=== PATIENT | female | born 1965 | race African-American/Black ===

== ENCOUNTER 2018-09-21 09:14 | Inpatient (IN) | payer OTHER ==
[2018-09-21 09:30] VITALS: BMI 21.3
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
[2018-09-21] MEDS ORDERED: IBUPROFEN 400 MG TABLET (FP) PO PRN (10:15)
[2018-09-21] MEDS ORDERED: diazePAM 5 MG TABLET PO PRN (10:15)
[2018-09-21] MEDS ORDERED: MAG HYDROX/AL HYDROX/SIMETH 30 ML UNIT-DOSE CUP PO PRN (10:15)
[2018-09-21] MEDS ORDERED: MAGNESIUM HYDROX 2400MG/30ML ORAL SUSPENSION 30 ML CUP PO PRN (10:15)
[2018-09-21] MEDS ORDERED: guaiFENesin/D-METHORPHAN HB 10 ML UNIT-DOSE CUPS PO PRN (10:15)
[2018-09-21] MEDS ORDERED: ACETAMINOPHEN 325 MG TABLET (FP) PO PRN (10:15)
[2018-09-21] MEDS ORDERED: METHADONE HCL 10 MG TABLET (FOR DETOX USE ONLY) PO ONE ×2 (10:15→23:00)
[2018-09-21] MEDS ORDERED: MENTHOL/PHENOL 1 EACH UD MM PRN (10:15)
[2018-09-21] MEDS ORDERED: P-EPHED 60MG/TRIPROLIDI 2.5MG TABLET PO PRN (10:15)
[2018-09-21] MEDS ORDERED: LOPERAMIDE HCL 2 MG CAPSULE PO PRN (10:15)
[2018-09-21] MEDS ORDERED: NICOTINE POLACRILEX 4 MG GUM BUC PRN (10:15)
[2018-09-21] MEDS ORDERED: MAGNESIUM CITRATE 300 ML BOTTLE PO PRN (10:15)
[2018-09-21] MEDS: TOLNAFTATE 1% CREAM 15 GM TUBE TP SCH ×2 (11:07→22:28)
[2018-09-21] MEDS: SULFAMETHOXAZOLE/TRIMETHOPRIM 800MG/160MG D.S. TABLET PO SCH (11:07)
[2018-09-21] MEDS: NICOTINE 21 MG/24 HOURS TOPICAL PATCH TD SCH (11:12)
[2018-09-21 19:23] LABS: URINE APPEARANCE SLCLOUDY; URINE BILIRUBIN NEGATIVE (<2.0 mg/dL); URINE COLOR AMBER; URINE GLUCOSE (UA) NEGATIVE (NEGATIVE); URINE KETONE NEGATIVE (NEGATIVE); URINE LEUK ESTERASE TRACE (NEGATIVE); URINE NITRITE NEGATIVE (NEGATIVE); URINE PROTEIN 2+ (NEGATIVE); URINE UROBILINOGEN 4.0 E.U/dl mg/dL (0.2-1.0)
[2018-09-21 19:27] LABS: CALCIUM OXALATE CRYSTALS FEW /hpf (NONE SEEN); EPI CELLS RARE /HPF (FEW); URINE MUCUS RARE
[2018-09-21] MEDS ORDERED: MELATONIN 5 MG TABLETS PO PRN (22:00)
--- NOTE | 2018-09-21 22:17 | EKG ---
Test Reason : Blood Pressure : / mmHG Vent. Rate : 089 BPM Atrial Rate : 089 BPM P-R Int : 124 ms QRS Dur : 080 ms QT Int : 348 ms P-R-T Axes : 065 079 068 degrees QTc Int : 423 ms NORMAL SINUS RHYTHM NORMAL ECG NO PREVIOUS ECGS AVAILABLE Confirmed by SHRUTI GARCIA MD ([id number]) on 09/21/2018 10:17:27 PM Referred By: LESLY HAGER Confirmed By:SHRUTI GARCIA MD
[2018-09-21] MEDS: THIAMINE HCL 100 MG TABLET (FP) PO SCH (22:28)
[2018-09-22] MEDS ORDERED: METHADONE HCL 10 MG TABLET (FOR DETOX USE ONLY) PO ONE (10:00)
[2018-09-22] MEDS: NICOTINE 21 MG/24 HOURS TOPICAL PATCH TD SCH (10:36)
[2018-09-22] MEDS: TOLNAFTATE 1% CREAM 15 GM TUBE TP SCH ×2 (10:36→22:17)
[2018-09-22] MEDS: PRENATAL VITAMINS W/ FOLIC ACID TABLET (FP) PO SCH (10:36)
[2018-09-22] MEDS: SULFAMETHOXAZOLE/TRIMETHOPRIM 800MG/160MG D.S. TABLET PO SCH (10:36)
[2018-09-22 10:51] LABS: HEMATOCRIT 36.6 % (32.4-45.2); HEMOGLOBIN 12.2 GM/dL (10.7-15.3); MCH 28.1 pg (25.7-33.7); MCHC 33.3 g/dl (32.0-36.0); MEAN CELL VOLUME 84.3 fl (80-96); MEAN PLT VOLUME 9.8 fl (7.5-11.1); PLATELET COUNT 150 K/MM3 (134-434); RBC 4.34 M/mm3 (3.60-5.2); RDW 15.5 % (11.6-15.6); WHITE BLOOD COUNT 5.1 K/mm3 (4.0-10.0)
[2018-09-22 10:52] LABS: ALBUMIN 2.6 g/dl (3.4-5.0); ALK PHOS 141 U/L (45-117); ANION GAP 5 MMOL/L (8-16); BILIRUBIN,TOTAL 0.4 mg/dL (0.2-1); BLOOD UREA NITROGEN 12 mg/dL (7-18); CALCIUM 9.5 mg/dL (8.5-10.1); CHLORIDE 101 mmol/L (98-107); CO2 30 mmol/L (21-32); CREATININE 0.8 mg/dL (0.55-1.3); GLUCOSE,RANDOM 84 mg/dL (74-106); POTASSIUM 3.2 mmol/L (3.5-5.1); SGOT/AST 34 U/L (15-37); SGPT/ALT 24 U/L (13-61); SODIUM 136 mmol/L (136-145); TOT PROT 8.4 g/dl (6.4-8.2)
--- NOTE | 2018-09-22 11:43 | PN ---
BHS COWS - Scale Resting Pulse: 1= RI 81-100 Sweatin= Chills/Flushing Restless Observation: 0= Sits Still Pupil Size: 1= Pupils >than Normal Bone or Joint Aches: 1= Mild Discomfort Runny Nose/ Eye Tearin= Nasal Congestion GI Upset > 30mins: 2= Nausea/Diarrhea Tremor Observation of Outstretched Hands: 1= Tremor [place], Not Seen Yawning Observation: 1= 1-2x During Session Anxiety or Irritability: 1=Feels Anxious/Irritable Goose Flesh Skin: 0=Smooth Skin COWS Score: 10 BHS Progress Note (SOAP) Subjective: body aches muscle cramping tremor sweating Objective: 09/22/18 11:58 Vital Signs Temperature 98.8 F 09/22/18 09:22 Pulse Rate 84 09/22/18 09:22 Respiratory Rate 18 09/22/18 09:22 Blood Pressure 115/69 09/22/18 09:22 O2 Sat by Pulse Oximetry (%) Laboratory Last Values WBC 5.1 K/mm3 (4.0-10.0) 09/22/18 05:50 RBC 4.34 M/mm3 (3.60-5.2) 09/22/18 05:50 Hgb 12.2 GM/dL (10.7-15.3) 09/22/18 05:50 Hct 36.6 % (32.4-45.2) 09/22/18 05:50 MCV 84.3 fl (80-96) 09/22/18 05:50 MCH 28.1 pg (25.7-33.7) D 09/22/18 05:50 MCHC 33.3 g/dl (32.0-36.0) 09/22/18 05:50 RDW 15.5 % (11.6-15.6) D 09/22/18 05:50 Plt Count 150 K/MM3 (134-434) 09/22/18 05:50 MPV 9.8 fl (7.5-11.1) D 09/22/18 05:50 Sodium 136 mmol/L (136-145) 09/22/18 05:50 Potassium 3.2 mmol/L (3.5-5.1) L 09/22/18 05:50 Chloride 101 mmol/L (98-107) 09/22/18 05:50 Carbon Dioxide 30 mmol/L (21-32) 09/22/18 05:50 Anion Gap 5 MMOL/L (8-16) L 09/22/18 05:50 BUN 12 mg/dL (7-18) 09/22/18 05:50 Creatinine 0.8 mg/dL (0.55-1.3) 09/22/18 05:50 Creat Clearance w eGFR > 60 (>60) 09/22/18 05:50 Random Glucose 84 mg/dL (74-106) 09/22/18 05:50 Calcium 9.5 mg/dL (8.5-10.1) 09/22/18 05:50 Total Bilirubin 0.4 mg/dL (0.2-1) 09/22/18 05:50 AST 34 U/L (15-37) 09/22/18 05:50 ALT 24 U/L (13-61) 09/22/18 05:50 Alkaline Phosphatase 141 U/L (45-117) H 09/22/18 05:50 Total Protein 8.4 g/dl (6.4-8.2) H 09/22/18 05:50 Albumin 2.6 g/dl (3.4-5.0) L 09/22/18 05:50 Urine Color [place] 09/21/18 13:11 Urine Appearance Slcloudy 09/21/18 13:11 Urine pH 5.0 (5.0-8.0) 09/21/18 13:11 Ur Specific Roy 1.024 (1.010-1.035) 09/21/18 13:11 Urine Protein 2+ (NEGATIVE) H 09/21/18 13:11 Urine Glucose (UA) Negative (NEGATIVE) 09/21/18 13:11 Urine Ketones Negative (NEGATIVE) 09/21/18 13:11 Urine Blood 2+ (NEGATIVE) H 09/21/18 13:11 Urine Nitrite Negative (NEGATIVE) 09/21/18 13:11 Urine Bilirubin Negative (<2.0 mg/dL) 09/21/18 13:11 Urine Urobilinogen 4.0 e.u/dl mg/dL (0.2-1.0) H 09/21/18 13:11 Ur Leukocyte Esterase Trace (NEGATIVE) 09/21/18 13:11 Urine WBC (Auto) 3 /hpf (3-5) 09/21/18 13:11 Urine RBC (Auto) 68 /hpf (0-3) 09/21/18 13:11 Ur Epithelial Cells Rare /HPF (FEW) 09/21/18 13:11 Calcium Oxalate Crystal Few /hpf (NONE SEEN) 09/21/18 13:11 Urine Mucus Rare 09/21/18 13:11 RPR Titer Nonreactive (NONREACTIVE) 09/22/18 05:50 lab noted low K+ Assessment: 09/22/18 12:01 withdrawal sx low K+ Plan: continue detox K+ supplement repeat K+
[2018-09-22] MEDS: POTASSIUM CHLORIDE ORAL LIQUID 20 MEQ/15 ML PO SCH ×2 (13:57→21:01)
[2018-09-22] MEDS: THIAMINE HCL 100 MG TABLET (FP) PO SCH (22:17)
--- NOTE | 2018-09-23 09:12 | PN ---
BHS COWS - Scale Resting Pulse: 1= [place] 81-100 Sweatin=Flushed/Facial Moisture Restless Observation: 0= Sits Still Pupil Size: 0= Normal to Room Light Bone or Joint Aches: 1= Mild Discomfort Runny Nose/ Eye Tearin= Runny Nose/Eyes GI Upset > 30mins: 3= Vomiting/Diarrhea Tremor Observation of Outstretched Hands: 2= Slight Tremor Visible Yawning Observation: 1= 1-2x During Session Anxiety or Irritability: 1=Feels Anxious/Irritable Goose Flesh Skin: 0=Smooth Skin COWS Score: 13 BHS Progress Note (SOAP) Subjective: sweats sleepless vomiting and diarrhea diarrhea Objective: 09/23/18 09:09 In bed A & O x 3 Nasal congestion Vital Signs Temperature 98.7 F 09/23/18 06:46 Pulse Rate 84 09/23/18 06:46 Respiratory Rate 18 09/23/18 06:46 Blood Pressure 128/80 09/23/18 06:46 O2 Sat by Pulse Oximetry (%) Assessment: 09/23/18 09:11 withdrawal sx Hypokalemia Plan: continue detox K+ x 1 more dose repeat lab
[2018-09-23] MEDS ORDERED: METHADONE HCL 5 MG TABLET (FOR DETOX USE ONLY) PO ONE (10:00)
[2018-09-23] MEDS: NICOTINE 21 MG/24 HOURS TOPICAL PATCH TD SCH (10:24)
[2018-09-23] MEDS: SULFAMETHOXAZOLE/TRIMETHOPRIM 800MG/160MG D.S. TABLET PO SCH (10:24)
[2018-09-23] MEDS: PRENATAL VITAMINS W/ FOLIC ACID TABLET (FP) PO SCH (10:24)
[2018-09-23] MEDS: TOLNAFTATE 1% CREAM 15 GM TUBE TP SCH (12:18)
[2018-09-23 13:34] VITALS: BP 115/76; PULSE 106; TEMP 97.3
[2018-09-23 15:28] LABS: ANION GAP 4 MMOL/L (8-16); BLOOD UREA NITROGEN 9 mg/dL (7-18); CALCIUM 10.1 mg/dL (8.5-10.1); CHLORIDE 107 mmol/L (98-107); CO2 25 mmol/L (21-32); CREATININE 0.8 mg/dL (0.55-1.3); GLUCOSE,RANDOM 91 mg/dL (74-106); POTASSIUM 4.4 mmol/L (3.5-5.1); SODIUM 136 mmol/L (136-145)
--- NOTE | 2018-09-23 17:11 | DS ---
[facility] Detox Discharge Summary Admission Date: 09/21/18 Discharge Date: 09/23/18 - History Present History: Cocaine Dependence, Opioid Dependence Additional Comments: Patient insist on leaving AMA. Patient advised on the risk of interrupting treatment which includes: relapse, overdose or . Patient verbalizes understanding. Patient to follow up with primary care provider and attached referrals, if worsening symptoms are present patient to go to the ED. - Physical Exam Results Vital Signs: Vital Signs Temperature 97.3 F L 09/23/18 13:34 Pulse Rate 106 H 09/23/18 13:34 Respiratory Rate 20 09/23/18 13:34 Blood Pressure 115/76 09/23/18 13:34 O2 Sat by Pulse Oximetry (%) - Medication Discharge Medications: Ambulatory Orders Elviteg/Cob/Emtri/Tenofo Disop [Stribild Tablet] 1 each PO DAILY 12/31/15 Sulfamethoxazole/Trimethoprim [Sulfamethoxazole-Tmp Ds Tablet] 1 each PO DAILY 12/31/15 Naloxone HCl [Narcan] 4 mg NS ASDIR PRN 09/22/18 - Diagnosis (1) AIDS (acquired immune deficiency syndrome) Current Visit: Yes Status: Chronic (2) Crack cocaine use Current Visit: Yes Status: Chronic (3) Hepatitis C Current Visit: Yes Status: Chronic Qualifiers: Viral hepatitis chronicity: chronic Hepatic coma status: without hepatic coma Qualified Code(s): B18.2 - Chronic viral hepatitis C (4) Nicotine dependence Current Visit: Yes Status: Chronic Qualifiers: Nicotine product type: cigarettes Substance use status: uncomplicated Qualified Code(s): F17.210 - Nicotine dependence, cigarettes, uncomplicated (5) Opioid dependence with withdrawal Current Visit: Yes Status: Chronic (6) Tinea pedis Current Visit: Yes Status: Chronic Qualifiers: Laterality: left Qualified Code(s): B35.3 - Tinea pedis - AMA Did Patient Leave Against Medical Advice: Yes
--- NOTE | 2018-09-23 17:12 | PN ---
[facility] Progress Note Note: Patient insist on leaving AMA. Patient reports she needs to burry her son. Patient denies suicidal / homicidal ideation. Patient advised on the risk of interrupting treatment which includes: relapse, overdose or . Patient verbalizes understanding. Patient to follow up with primary care provider and attached referrals, if worsening symptoms are present patient to go to the ED.
[2018-09-24] MEDS ORDERED: METHADONE HCL 5 MG TABLET (FOR DETOX USE ONLY) PO ONE (10:00)
[2018-09-25] MEDS ORDERED: METHADONE HCL 10 MG TABLET (FOR DETOX USE ONLY) PO ONE (10:00)
[2018-09-26] MEDS ORDERED: METHADONE HCL 5 MG TABLET (FOR DETOX USE ONLY) PO ONE (06:00)
== END 2018-09-23 17:31 | disposition left against medical advice (07) | DRG 770 ==
LOC: YASAS 09:14 → Y3N 10:30
PROVIDERS: ADMIT Surgery; ATTEND Surgery
PROC: HZ2ZZZZ Detoxification Services for Substance Abuse Treatment (ICD-10-PCS; principal; 2018-09-21)
DX: F10.230 Alcohol dependence with withdrawal, uncomplicated (principal); F14.10 Cocaine abuse, uncomplicated; F17.210 Nicotine dependence, cigarettes, uncomplicated; B20 Human immunodeficiency virus [HIV] disease; B35.3 Tinea pedis; B18.2 Chronic viral hepatitis C; E87.6 Hypokalemia; E78.00 Pure hypercholesterolemia, unspecified; Z86.19 Personal history of other infectious and parasitic diseases
CPT/HCPCS: 36415; 71046-TC-FY; 80048; 80053; 81003; 81015; 85027; 86593; 93005; 93010